=== PATIENT | female | born 1970 | race African-American/Black ===

== ENCOUNTER 2023-02-14 15:40 | Emergency (ER) | payer BC ==
[2023-02-14] MEDS ORDERED: cefTRIAXone 1 GM Vial IM ONE (16:13)
[2023-02-14 16:23] LABS: EOSINOPHILS ABSOLUTE AUTO 0.08 K/uL (0.00-0.50); EOSINOPHILS PERCENT AUTO 1.5 % (0.0-5.0); HEMATOCRIT 33.7 % (34.0-46.0); HEMOGLOBIN 11.4 g/dL (11.7-15.5); LYMPHOCYTES ABSOLUTE AUTO 1.49 K/uL (0.50-3.50); MEAN CORPUSCULAR HEMOGLOBIN 30.8 pg (28.2-33.3); MEAN CORPUSCULAR HGB CONC 33.8 g/dL (31.7-36.0); MEAN CORPUSCULAR VOLUME 91.1 fL (84.0-98.0); MONOCYTES ABSOLUTE AUTO 0.28 K/uL (0.00-1.00); MONOCYTES PERCENT AUTO 5.3 % (2.0-14.0); NEUTROPHILS ABSOLUTE AUTO 3.47 K/uL (1.40-7.00); NEUTROPHILS PERCENT AUTO 65.2 % (45.0-80.0); PLATELET COUNT,PLT 215 K/uL (150-350); RED CELL DISTRIBUTION WIDTH 12.3 % (11.2-14.1); WHITE BLOOD CELL COUNT,WBC 5.3 K/uL (4.0-10.2)
[2023-02-14] MEDS ORDERED: Lidocaine 1% 5 ML VIAL ONE (16:35)
[2023-02-14] MEDS ORDERED: Lidocaine 1% 5 ML VIAL INJECT ONE (16:36)
[2023-02-14 16:37] LABS: ALBUMIN 3.5 g/dL (3.4-5.0); ALKALINE PHOSPHATASE 123 IU/L (46-116); ANION GAP 8.5 meq/L (7-15); BILIRUBIN TOTAL 0.5 mg/dL (0.2-1.0); BLOOD UREA NITROGEN,BUN 13 mg/dL (7-18); CALCIUM 8.6 mg/dL (8.5-10.1); CARBON DIOXIDE,CO2 26.5 mmol/L (21.0-32.0); CHLORIDE,CL 105 mmol/L (98-107); GLUCOSE RANDOM 118 mg/dL (70-99); POTASSIUM,K 3.6 mmol/L (3.5-5.1); PROTEIN TOTAL,TP 7.5 g/dL (6.4-8.2); SODIUM,NA 140 mmol/L (136-145)
[2023-02-14] MEDS ORDERED: cefTRIAXone 1 GM, Lidocaine 1% 2.1 ML IM ONE ×2 (16:42)
[2023-02-14 16:46] LABS: ALANINE AMINOTRANSFERASE,ALT 12 U/L (12-78); CREATININE 0.86 mg/dL (0.51-1.17)
[2023-02-14 16:49] LABS: ESTIMATED GFR 80 mL/min (>=60)
[2023-02-14 16:55] LABS: ASPARTATE AMNIOTRANSFERASE,AST 19 U/L (15-37)
== END 2023-02-14 16:47 | disposition home or self-care (01) ==
LOC: LL.ED 15:40
DX: L03.113 Cellulitis of right upper limb (principal)
CPT/HCPCS: 36415; 80053; 85025; 96372; 99283; J0696; J3490